=== PATIENT | female | born 1940 | race Caucasian/White ===

== ENCOUNTER 2020-01-06 17:59 | Emergency (ER) | payer MEDICARE, SELFPAY ==
--- NOTE | ~2020-01-06 | CT_ITS ---
EXAMINATION: CT brain wo con DATE: 01/06/2020 18:35 INDICATION: Syncope and fall TECHNIQUE: Computed tomography (CT) of the head was performed without intravenous contrast. Sagittal and coronal reconstructions were performed. The mA was adjusted according to patient size. Iterative reconstruction technique was employed. The dose-length product was 605.33 mGy-cm. COMPARISON: head CT dated 11/03/2017 FINDINGS: Again seen is a moderate sized region of encephalomalacia in the left frontal lobe consistent with ch ronic infarct. No acute intracranial hemorrhage, acute infarction or mass/mass effect. There is symme tric prominence of the sulci and coils consistent with mild to moderate age-appropriate diffuse cereb ral volume loss. Mild scattered periventricular and subcortical white matter hypoattenuation consist ent with chronic small vessel ischemic disease. Mucus and mucosal thickening in the left sphenoid an d posterior left ethmoid sinus. The orbits and mastoid air cells are normal. Intracranial calcified c erebral atherosclerosis is noted. IMPRESSION: 1. No fracture or acute intracranial process. 2. Chronic moderate-sized left frontal infarct. 3. Age-related changes including mild to moderate diffuse loss and mild scattered white matter hypoat tenuation consistent with chronic small vessel ischemic disease. Reviewed, dictated and finalized at location A. IMPRESSION: 1. No fracture or acute intracranial process. 2. Chronic moderate-sized left frontal infarct. 3. Age-related changes including mild to moderate diffuse loss and mild scatter ed white matter hypoattenuation consistent with chronic small vessel ischemic d isease.
[2020-01-06 17:59] VITALS: BP 104/56; PULSE 62; RESP 16; TEMP 37; O2SAT 94
[2020-01-06 18:03] VITALS: PULSE 60
--- NOTE | 2020-01-06 18:09 | ED.SYNCOPE ---
HPI - Syncope General Chief Complaint: Syncope Stated Complaint: syncopal episode Time Seen by Provider: 01/06/20 18:01 History of Present Illness HPI narrative: 79 yo female with dementia, CVA, CAD presents from assisted living after a syncopal event. She was in the dining milner when she bent down to pisck something up then lost consciousness. She was noted to have vomited and been incontinent of stool. She is not sure if this happened before or after she lost consciousness. She reports no symptoms at this time. Related Data Home Medications Medication Instructions Recorded Confirmed Lactobacillus acidophilus 100 mg PO DAILY 01/06/20 [Acidophilus] acetaminophen 325 mg PO BID PRN 01/06/20 alendronate 70 mg PO WEEKLY 01/06/20 aspirin 325 mg PO DAILY 01/06/20 atenolol 100 mg PO DAILY 01/06/20 atorvastatin 10 mg PO HS 01/06/20 cetirizine 10 mg PO HS 01/06/20 cholecalciferol (vitamin D3) 25 mcg PO DAILY 01/06/20 [Vitamin D3] cilostazol 50 mg PO BID 01/06/20 donepezil 10 mg PO HS 01/06/20 01/06/20 hydrochlorothiazide 25 mg PO DAILY 01/06/20 lisinopril 5 mg PO DAILY 01/06/20 magnesium oxide 400 mg PO DAILY 01/06/20 mecobalamin (vitamin B12) 1,000 mcg PO DAILY 01/06/20 metformin 500 mg PO DAILY 01/06/20 solifenacin 5 mg PO HS 01/06/20 thiamine HCl (vitamin B1) 100 mg PO DAILY 01/06/20 tramadol 50 mg PO Q4-5H PRN 01/06/20 trazodone 100 mg PO HS 01/06/20 Allergies Allergy/AdvReac Type Severity Reaction Status Date / Time No Known Allergies Allergy Verified 01/06/20 18:19 Review of Systems Review of Systems: All systems reviewed & are unremarkable except as noted in HPI and below Constitutional: Constitutional: Denies fever(s) Cardiovascular: Cardiovascular: Denies chest pain Respiratory: Respiratory: Denies dyspnea Gastrointestinal: Gastrointestinal: Denies abdominal pain and Reports vomiting Genitourinary: Genitourinary: Denies dysuria Musculoskeletal: Musculoskeletal: Denies back pain Neurologic: Reports syncope and Denies weakness Exam Const: General: no acute distress and alert Nutritional Appearance: well nourished Orientation/consciousness: patient oriented x3 HENMT: Head: normal to inspection Eyes: Pupils: Equal, round and reactive pupils present EOM: EOMs intact bilaterally Resp: Effort & Inspection: normal respiratory effort Auscultation: clear to auscultation bilaterally Cardio: Rate: regular rate Rhythm: regular rhythm GI: Other: Soft, NT Skin: General skin exam: normal color Neuro: General: patient oriented x3, moves all extremities, no focal motor deficits and CN's II-XI intact bilaterally Speech: normal speech Extrem: General: normal to inspection and no edema Course Vital Signs Vital signs: Vital Signs Temperature 37.0 C 01/06/20 17:59 Pulse Rate 62 01/06/20 17:59 Respiratory Rate 16 01/06/20 17:59 Blood Pressure 104/56 L 01/06/20 17:59 Pulse Oximetry 94 01/06/20 17:59 Temperature 37.0 C 01/06/20 17:59 Pulse Rate 62 01/06/20 20:05 Respiratory Rate 20 01/06/20 20:05 Blood Pressure 133/58 L 01/06/20 20:05 Pulse Oximetry 92 01/06/20 20:05 MDM - Syncope MDM Narrative Medical decision making narrative: Pacemaker interrogation did not reveal anything significant. UTI likely played a role. Ambulating with stable gait. Differential Diagnosis Differential diagnosis: Likely syncope due to orthostatic hypotension, vasovagal syncope, dehydration and other (TIA) Medical Records Attestation: I reviewed the patient's medical records. Lab Data Attestation: I reviewed the patient's lab results. Result diagrams: 01/06/20 18:37 01/06/20 18:37 Labs: Lab Results 01/06/20 01/06/20 01/06/20 Range/Units 18:37 18:37 18:37 WBC 11.6 H (4.5-10.0) K/mm3 RBC 4.80 (4.2-5.4) M/mm3 Hgb 14.4 (12.0-15.0) g/dL Hct 41.5 (37.0-47.0) % MCV 86.5 (80-100) fl MCH 30.0 (26-34)
--- NOTE | 2020-01-06 18:22 | ECG_ITS ---
Measurements Intervals [place] Rate: 60 P: 108 CT: 184 QRS: -90 QRSD: 157 T: 76 QT: 508 QTc: 508 Interpretive Statements ELECTRONIC ATRIAL PACEMAKER ELECTRONIC VENTRICULAR PACEMAKER BASELINE ARTIFACT- I, II, III NO FURTHER INTERPRETATION IS POSSIBLE ATYPICAL ECG Electronically Signed On 01-07-2020 8:22:37 CDT by Malcolm Portillo D.O.
[2020-01-06] MEDS: SODIUM CHLORIDE 0.9% IV 500 ML 999 ML IV CONT (18:37)
[2020-01-06 18:48] LABS: Basophils Absolute Auto 0.1 K/mm3 (0.0-0.1); Basophils Percent Auto 0.5 % (0.2-1.2); Eosinophils Absolute Auto 0.2 K/mm3 (0-0.3); Eosinophils Percent Auto 1.9 % (0-4.4); Hematocrit 41.5 % (37.0-47.0); Hemoglobin 14.4 g/dL (12.0-15.0); Immature Granulocyte Absolute 0.05 K/mm3 (0.00-0.031); Immature Granulocyte Percent A 0.4 % (0-0.5); Lymphocytes Absolute Auto 2.46 K/mm3 (0.9-3.2); Lymphocytes Percent Auto 21.2 % (18.3-44.2); Mean Corpuscular HGB Conc 34.7 g/dl (32-36); Mean Corpuscular Volume 86.5 fl (80-100); Monocytes Absolute Auto 0.8 K/mm3 (0.1-0.6); Monocytes Percent Auto 6.7 % (2.6-8.5); Neutrophils Percent Auto 69.3 % (45.5-73.1); Platelet Count Result 348 k/mm3 (150-375); Red Cell Distribution Width 13.4 % (11.5-14.5); White Blood Count 11.6 K/mm3 (4.5-10.0)
[2020-01-06 18:55] LABS: Partial Thromboplastin Time 28.1 SECONDS (22.3-36.8)
[2020-01-06 18:56] LABS: Alanine Aminotransferase 11 U/L (4-35); Albumin Level 3.6 g/dL (3.5-5.1); Alkaline Phosphatase 112 U/L (38-126); Anion Gap 10 mmol/L (8-16); Aspartate Amino Transferase 17 U/L (14-36); Bilirubin,Total 0.3 mg/dL (0.2-1.3); Blood Urea Nitrogen 17 mg/dL (7-17); Calcium 9.2 mg/dL (8.4-10.2); Carbon Dioxide 26 mmol/L (22-30); Chloride 96 mmol/L (98-107); Estimated CRCL calculation 43 ml/min; Estimated Glomerular Filt Rate > 60; Glucose 133 mg/dL (65-105); Potassium 3.9 mmol/L (3.4-5.0); Sodium 132 mmol/L (137-145)
[2020-01-06 19:00] LABS: Add Urine Microscopic? YES; Appearance Urine Clear (Clear); Bacteria Urine Trace /hpf; Bilirubin Urine Negative (Negative); Blood Urine Negative (Negative); Color Urine Yellow (Yellow); Glucose Urine UA Negative (Negative); Ketones Urine Trace mg/dL (Negative); Leukocyte Esterase Ur 1+ LEU/UL (Negative); Mucus Urine Rare /lpf; Nitrate Urine Negative (Negative); Protein Urine Negative (Negative); Specific Grav Ur 1.016 (1.001-1.035); Squamous Epithelial Cell Urine Many /hpf (Few)
[2020-01-06 19:00] LABS: INR 1.1
--- NOTE | 2020-01-06 19:13 | PC.NURSE ---
Pacemaker interrogated and called [employer] states they received interrogation and will fax results to ED.
[2020-01-06 20:05] VITALS: BP 133/58; PULSE 62; RESP 20; O2SAT 92
[2020-01-06] MEDS: CEPHALEXIN 500 MG CAPSULE PO (20:46)
[2020-01-06] MEDS: CIPROFLOXACIN 500 MG TAB PO (20:46)
[2020-01-06 21:50] VITALS: BP 136/78; PULSE 60; RESP 18; O2SAT 99
== END 2020-01-06 21:52 ==
PROVIDERS: Emergency Provider Emergency Medicine
DX: N39.0 Urinary tract infection, site not specified (principal); R55 Syncope and collapse; Z86.73 Personal history of transient ischemic attack (TIA), and cerebral infarction without residual deficits; I25.10 Atherosclerotic heart disease of native coronary artery without angina pectoris; F03.90 Unspecified dementia, unspecified severity, without behavioral disturbance, psychotic disturbance, mood disturbance, and anxiety; Z79.82 Long term (current) use of aspirin; Z95.0 Presence of cardiac pacemaker
CPT/HCPCS: 36415; 51701; 70450; 80053; 81001; 85025; 85610; 85730; 87086; 93005; 96360; 99284; A9270; J7040

== ENCOUNTER 2021-10-23 18:37 | Emergency (ER) | payer MEDICARE, SELFPAY ==
[2021-10-23] VITALS (21 sets, daily range): BP systolic 175–213; BP diastolic 74–82; PULSE 43–57; RESP 17–26; TEMP 37.1; O2SAT 95–99
--- NOTE | 2021-10-23 18:59 | ECG_ITS ---
Measurements Intervals [place] Rate: 50 P: CA: 0 QRS: 265 QRSD: 154 T: 72 QT: 526 QTc: 480 Interpretive Statements ELECTRONIC VENTRICULAR PACEMAKER UNDERLYING SINUS RHYTHM WITH COMPLETE HEART BLOCK BASELINE ARTIFACT- V1-V3 NO FURTHER INTERPRETATION IS POSSIBLE ABNORMAL ECG Electronically Signed On 10-24-2021 8:41:02 CDT by Malcolm Portillo D.O.
[2021-10-23 19:18] LABS: Anion Gap 7 mmol/L (8-16); Blood Urea Nitrogen 16 mg/dL (7-17); Calcium 9.1 mg/dL (8.4-10.2); Carbon Dioxide 28 mmol/L (22-30); Chloride 97 mmol/L (98-107); Estimated CRCL calculation 38 ml/min; Estimated Glomerular Filt Rate 60; Glucose 122 mg/dL (65-110); Potassium 4.4 mmol/L (3.4-5.0); Sodium 132 mmol/L (137-145)
--- NOTE | 2021-10-23 19:23 | ED.GENADULT ---
HPI - General Adult General Chief complaint: Recheck/Abnormal Lab/Rx Stated complaint: ABN LABS K 7.1 Time Seen by Provider: 10/23/21 18:56 History of Present Illness HPI narrative: 81-year-old female presenting to the emergency department for evaluation of outpatient labs showing hyperkalemia of 7.1. Patient had these routine labs drawn this morning and was called and told to present to the emergency department. Patient does have dementia and is a resident at a local memory care unit. Patient denies any complaints at this time. Patient does have a pacemaker in place. Patient does have history of hypertension and does take medications for her blood pressure. Family states she has not had any nighttime meds but they are unsure of what meds she takes at night. Patient is denying any complaints. Related Data Home Medications Medication Instructions Recorded Confirmed Lactobacillus acidophilus 100 mg PO DAILY 01/06/20 (Acidophilus capsule) acetaminophen 325 mg tablet 325 mg PO BID PRN Pain 01/06/20 alendronate 70 mg tablet 70 mg PO WEEKLY 01/06/20 aspirin 325 mg tablet 325 mg PO DAILY 01/06/20 atenolol 100 mg tablet 100 mg PO DAILY 01/06/20 atorvastatin 10 mg tablet 10 mg PO HS 01/06/20 cetirizine 10 mg tablet 10 mg PO HS 01/06/20 cholecalciferol (vitamin D3) 25 25 mcg PO DAILY 01/06/20 mcg (1,000 unit) tablet (Vitamin D3) cilostazol 50 mg tablet 50 mg PO BID 01/06/20 donepezil 10 mg tablet 10 mg PO HS 01/06/20 01/06/20 hydrochlorothiazide 25 mg tablet 25 mg PO DAILY 01/06/20 lisinopril 5 mg tablet 5 mg PO DAILY 01/06/20 magnesium oxide 400 mg PO DAILY 01/06/20 mecobalamin (vitamin B12) 1,000 1,000 mcg PO DAILY 01/06/20 mcg chewable tablet metformin 500 mg tablet 500 mg PO DAILY 01/06/20 solifenacin 5 mg tablet 5 mg PO HS 01/06/20 thiamine HCl (vitamin B1) 100 mg 100 mg PO DAILY 01/06/20 tablet tramadol 50 mg tablet 50 mg PO Q4-5H PRN Pain 01/06/20 trazodone 100 mg tablet 100 mg PO HS 01/06/20 Allergies Allergy/AdvReac Type Severity Reaction Status Date / Time No Known Allergies Allergy Verified 10/23/21 18:52 Review of Systems Review of Systems: CONSTITUTIONAL: Denies fever, chills, or sweats. EYES: Denies visual changes, redness, or discharge. ENT: Denies rhinorrhea, congestion, sore throat, or otalgia. CARDIOVASCULAR: Denies chest pain, palpitations, or edema. RESPIRATORY: Denies cough or dyspnea. GASTROINTESTINAL: Denies abdominal pain, nausea, vomiting, or diarrhea. GENITOURINARY: Denies dysuria or hematuria. SKIN: Denies rash or itching. MUSCULOSKELETAL: Denies back pain, joint pain, or myalgia. NEUROLOGIC: Denies headache, numbness, or weakness. [facility] Family History Family History (System 05/06/21 @ 12:06 by Minesh Webster) Father Carcinoma of colon Mother Family history of congestive heart failure Social History Social History (System 05/06/21 @ 12:06 by Minesh Webster) Smoking status: Former smoker Gender identity (if verbalized by the patient): Female Exam Narrative: APPEARANCE: Well appearing, no pain, no distress, well-nourished. HEAD: normocephalic, atraumatic. EYES: PERRLA/EOMI, conjunctivae clear. NOSE: Normal no drainage NECK: Supple. No adenopathy, no masses. RESPIRATORY: Airway patent, respirations nonlabored. Clear to auscultation bilaterally, no rales, rhonchi, wheezing. CARDIOVASCULAR: Regular rate and rhythm without murmurs rubs or gallops. ABDOMINAL: Soft, nontender, nondistended, normal bowel sounds MUSCULOSKELETAL: Moves all extremities. Strength/ROM intact, No edema, No calf tenderness. NEURO: Alert. Cranial nerves II through XII intact. Grossly intact SKIN: Warm, dry. Normal Color Course Course Emergency Course: Patient will be treated with her nighttime meds. Patient's repeat potassium was 4.4. Patient's blood pressure was elevated. Patient was treated with hydrochlorothiazide 25 mg and lisinopril 5 mg p.o. Patient denies any comp
[2021-10-23 19:54] LABS: Magnesium 1.8 mg/dL (1.6-2.3); Phosphorus 3.7 mg/dL (2.5-4.5)
[2021-10-23] MEDS: lisinopriL 5 MG TABLET PO (19:58)
[2021-10-23] MEDS: hydroCHLOROthiazide 25 MG TABLET PO (19:58)
== END 2021-10-23 21:27 ==
PROVIDERS: Emergency Medicine; Emergency Provider Emergency Medicine; PCP Nurse Practitioner Family
DX: E87.5 Hyperkalemia (principal); I10 Essential (primary) hypertension; Z95.0 Presence of cardiac pacemaker; Z79.82 Long term (current) use of aspirin; Z87.891 Personal history of nicotine dependence; I44.2 Atrioventricular block, complete
CPT/HCPCS: 36415; 80048; 83735; 84100; 93005; 99283; A9270

== ENCOUNTER 2022-05-04 19:58 | Emergency (ER) | payer MEDICARE, SELFPAY ==
[2022-05-04] VITALS (7 sets, daily range): BP systolic 166–231; BP diastolic 84–139; PULSE 45–78; RESP 16–27; TEMP 36.6–37.2; O2SAT 95–98
--- NOTE | ~2022-05-04 | CT_ITS ---
EXAMINATION: CT brain wo con DATE: 05/04/2022 20:38 INDICATION: fall, head trauma . TECHNIQUE: Computed tomography (CT) of the head was performed without intravenous contrast. The mA wa s adjusted according to patient size. Iterative reconstruction technique was employed. The dose-lengt h product was 605.33 mGy-cm. COMPARISON: 01/06/2020. FINDINGS: No acute intracranial hemorrhage or extra-axial fluid collection. No hydrocephalus, mass, or herniation. No acute ischemic infarct. Unremarkable dural venous sinus attenuation. No acute osseous abnormality. Small right parietal contusion/laceration, near the vertex. The aerated spaces are clear. Moderate atrophy and severe chronic white matter change. Old left basal ganglia lacunar infarcts. Lef t frontal encephalomalacia. Right basal ganglia calcification. Atherosclerotic intracranial calcifica tion. Bilateral lens replacements. IMPRESSION: No acute intracranial process. Reviewed, dictated and finalized at location K. M BENEFIT SPECIALIST
--- NOTE | ~2022-05-04 | CT_ITS ---
EXAMINATION: CT cervical spine wo con DATE: 05/04/2022 20:41 INDICATION: fall, head trauma TECHNIQUE: Computed tomography (CT) of the cervical spine was performed without intravenous contrast. Automated exposure control and iterative reconstruction technique were employed. The dose-length pro duct was 316.80 mGy-cm. COMPARISON: CTA neck 12/12/2014, ultrasound thyroid 11/28/2014. FINDINGS: Vertebral Body Alignment: Intact. Trace stable multilevel listheses.. Craniocervical and atlantoaxial alignment: Moderate degenerative change. Alignment intact. Osseous structures/fracture: No evidence of a lytic or blastic process in the visualized spine. No e vidence of acute fracture. . Cervical soft tissues: The paraspinal soft tissues planes are maintained. Apical lung opacities which may reflect senescent change and mild interstitial edema. Bilateral thyroid nodules measuring up to 1.6 cm on the left, which is larger than in prior studies. Degenerative changes: Degenerative changes, without severe neural foraminal or central canal narrowin g. IMPRESSION: No acute fracture or traumatic malalignment in the cervical spine. Mild interstitial edema. Bilateral thyroid nodules, consider nonemergent, outpatient thyroid ultrasound for further characterization. Reviewed, dictated and finalized at location K. TECH IMPRESSION: No acute fracture or traumatic malalignment in the cervical spine. Mild interst itial edema. Bilateral thyroid nodules, consider nonemergent, outpatient thyroi d ultrasound for further characterization.
--- NOTE | ~2022-05-04 | XR_ITS ---
EXAM: XR finger 5th LT min 2V DATE: 05/04/2022 20:58 HISTORY: Pain and bruising to 5th digit after fall . COMPARISON: None available. FINDINGS: Decreased mineralization. Nondisplaced mildly comminuted fracture of the left fifth distal phalange. No lytic or blastic lesion. Scattered degenerative change. No erosion or periosteal change . Soft tissues within normal limits. IMPRESSION: Nondisplaced mildly comminuted fracture of the left fifth distal phalange. Reviewed, dictated and finalized at location K. CH OPERATOR IMPRESSION: Nondisplaced mildly comminuted fracture of the left fifth distal ph alange.
--- NOTE | ~2022-05-04 | XR_ITS ---
EXAMINATION: XR chest 1V Exam Date/Time: 05/04/2022 20:47 HEATER MECHANIC HISTORY: Fall today, no chest complaints. former smoker Comparison: 10/11/2018. RESULT: Lines, tubes, and devices: Screw and plate fixation of the left proximal humerus. Right chest pacer with intact leads. Left axillary and mediastinal surgical clips. Streaky bibasilar opacities that lik alexandra represent scar and/or atelectasis. Lungs and pleura: Diffuse reticular opacities. Cardiomediastinal silhouette: Stable. Other: No acute osseous or upper abdominal finding. IMPRESSION: Mild interstitial edema. Reviewed, dictated and finalized at location K. ER MECHANIC IMPRESSION: Mild interstitial edema.
--- NOTE | 2022-05-04 19:56 | ED.FALL ---
HPI - Fall General Chief Complaint: Fall Stated Complaint: glf, head lac Source: EMS and old records reviewed Mode of arrival: EMS Limitations: dementia History of Present Illness HPI Narrative: Patient is a 81-year-old female with a history of Alzheimer's dementia, hypertension, type 2 diabetes, presenting to the emergency department for evaluation following a witnessed, will fall. Patient reportedly fell while walking around the memory care unit. Patient with head trauma without loss of conscious. Patient without any witnessed tonic-clonic activity, urinary incontinence, episode of confusion although she seems to have some significant memory disturbance at baseline. Per review and per EMS report, patient is usually alert and oriented to person and place, currently only alert and oriented to person. She states that she is at [facility] to the nurse, states that it is year 1999. She is able to follow simple commands but additional history is limited secondary to the patient's baseline Alzheimer dementia. Pt can state she is left hand dominant. She denies any focal pain aside from her left fifth finger which is bruised and swollen. Related Data Home Medications Medication Instructions Recorded Confirmed Lactobacillus acidophilus 100 mg PO DAILY 01/06/20 (Acidophilus capsule) acetaminophen 325 mg tablet 325 mg PO BID PRN Pain 01/06/20 alendronate 70 mg tablet 70 mg PO WEEKLY 01/06/20 aspirin 325 mg tablet 325 mg PO DAILY 01/06/20 atenolol 100 mg tablet 100 mg PO DAILY 01/06/20 atorvastatin 10 mg tablet 10 mg PO HS 01/06/20 cetirizine 10 mg tablet 10 mg PO HS 01/06/20 cholecalciferol (vitamin D3) 25 25 mcg PO DAILY 01/06/20 mcg (1,000 unit) tablet (Vitamin D3) cilostazol 50 mg tablet 50 mg PO BID 01/06/20 donepezil 10 mg tablet 10 mg PO HS 01/06/20 01/06/20 hydrochlorothiazide 25 mg tablet 25 mg PO DAILY 01/06/20 lisinopril 5 mg tablet 5 mg PO DAILY 01/06/20 magnesium oxide 400 mg PO DAILY 01/06/20 mecobalamin (vitamin B12) 1,000 1,000 mcg PO DAILY 01/06/20 mcg chewable tablet metformin 500 mg tablet 500 mg PO DAILY 01/06/20 solifenacin 5 mg tablet 5 mg PO HS 01/06/20 thiamine HCl (vitamin B1) 100 mg 100 mg PO DAILY 01/06/20 tablet tramadol 50 mg tablet 50 mg PO Q4-5H PRN Pain 01/06/20 trazodone 100 mg tablet 100 mg PO HS 01/06/20 Allergies Allergy/AdvReac Type Severity Reaction Status Date / Time No Known Allergies Allergy Verified 05/04/22 20:11 Review of Systems Review of Systems: ROS unobtainable: Yes unobtainable due to mental status PMFSH Family History Family History (System 05/06/21 @ 12:06 by Minesh Webster) Father Carcinoma of colon Mother Family history of congestive heart failure Social History Social History Smoking status: Former smoker Gender identity (if verbalized by the patient): Female Exam Narrative: Nursing note and vitals reviewed. CONSTITUTIONAL: The patient appears well-developed and well-nourished. No distress. HEAD: Normocephalic, small occipital abrasion, no gaping, no active bleeding EYES: PERRL, EOMI, normal conjunctiva, anicteric EARS: External ears clear bilaterally, no hemotympanum MOUTH: OP clear, no erythema, exudates NECK: midline trachea, supple, FROM. No reported midline cervical spinal tenderness. No step-offs or deformities appreciated. CARDIOVASCULAR: Normal rate, regular rhythm, normal heart sounds and intact distal pulses. No murmurs, rubs, gallops. PULMONARY: Effort normal and breath sounds normal. No respiratory distress. The patient has no wheezes, rales, rhonchi. No chest wall tenderness, crepitus or ecchymoses. ABDOMINAL: Soft. Nontender, nondistended. No palpable masses EXTREMITIES:: moving all extremities symmetrically. -RUE: No deformity. Normal ROM at shoulder, elbow, wrist, and hand. Sensation intact M/U/R. Pulse 2+. -LUE: Normal ROM at shoulder, elbow, wrist, an
--- NOTE | 2022-05-04 20:11 | ECG_ITS ---
Measurements Intervals [place] Rate: 50 P: MT: 0 QRS: -75 QRSD: 156 T: 105 QT: 502 QTc: 458 Interpretive Statements ELECTRONIC VENTRICULAR PACEMAKER UNDERLYING SINUS RHYTHM WITH COMPLETE HEART BLOCK NO FURTHER INTERPRETATION IS POSSIBLE ABNORMAL ECG COMPARED TO ECG 10/23/2021 19:19:14 Electronically Signed On 05-05-2022 16:36:43 RECREATIONAL ASSISTANT by Malcolm Portillo D.O.
[2022-05-04] MEDS: hydrALAZINE HCL 20 MG/ML VIAL 10 MG IV PUSH ×2 (20:23→22:00)
[2022-05-04 20:52] LABS: Basophils Absolute Auto 0.1 K/mm3 (0.0-0.1); Basophils Percent Auto 0.6 % (0.2-1.2); Eosinophils Absolute Auto 0.3 K/mm3 (0-0.3); Eosinophils Percent Auto 2.4 % (0-4.4); Hematocrit 45.3 % (37.0-47.0); Immature Granulocyte Absolute 0.07 K/mm3 (0.00-0.031); Immature Granulocyte Percent A 0.6 % (0-0.5); Lymphocytes Absolute Auto 1.94 K/mm3 (0.9-3.2); Lymphocytes Percent Auto 15.8 % (18.3-44.2); Mean Corpuscular HGB Conc 33.1 g/dl (32-36); Mean Corpuscular Hemoglobin 28.2 pg (26-34); Mean Corpuscular Volume 85.3 fl (80-100); Mean Platelet Volume 9.3 fl (7.4-10.4); Monocytes Absolute Auto 0.7 K/mm3 (0.1-0.6); Monocytes Percent Auto 5.3 % (2.6-8.5); Neutrophils Absolute Auto 9.3 K/mm3 (1.3-6.7); Neutrophils Percent Auto 75.3 % (45.5-73.1); Platelet Count Result 327 k/mm3 (150-375); Red Blood Count 5.31 M/mm3 (4.2-5.4); White Blood Count 12.3 K/mm3 (4.5-10.0)
[2022-05-04 21:02] LABS: Anion Gap 8 mmol/L (8-16); Blood Urea Nitrogen 21 mg/dL (7-17); Calcium 8.6 mg/dL (8.4-10.2); Carbon Dioxide 27 mmol/L (22-30); Chloride 99 mmol/L (98-107); Estimated CRCL calculation 46 ml/min; Estimated Glomerular Filt Rate 60; Glucose 191 mg/dL (65-110); Potassium 4.5 mmol/L (3.4-5.0); Sodium 134 mmol/L (137-145)
[2022-05-04 21:13] LABS: Troponin I 0.019 ng/mL (0.000-0.034)
[2022-05-04] MEDS: TETANUS,DIPHTHERIA,AC PERTUSSIS ADULT (0.5 ML) BOOSTRIX IM (22:45)
--- NOTE | 2022-05-04 22:49 | PC.NURSE ---
Ambulance called. Will arrive approximately 0030 to transport pt back to [facility].
== END 2022-05-05 00:19 ==
PROVIDERS: Emergency Provider Emergency Medicine; PCP Nurse Practitioner Family
DX: S00.01XA Abrasion of scalp, initial encounter (principal); S62.667A Nondisplaced fracture of distal phalanx of left little finger, initial encounter for closed fracture; I10 Essential (primary) hypertension; Z23 Encounter for immunization; G30.9 Alzheimer's disease, unspecified; F02.80 Dementia in other diseases classified elsewhere, unspecified severity, without behavioral disturbance, psychotic disturbance, mood disturbance, and anxiety; E11.9 Type 2 diabetes mellitus without complications; Z87.891 Personal history of nicotine dependence; Z79.82 Long term (current) use of aspirin; Z79.84 Long term (current) use of oral hypoglycemic drugs; W19.XXXA Unspecified fall, initial encounter
CPT/HCPCS: 29130; 36415; 70450; 71045; 72125; 73140; 80048; 84484; 85025; 90471; 90715; 93005; 96374; 96376; 99284; J0360